=== PATIENT | female | born 1955 | race Caucasian/White ===

== ENCOUNTER 2016-10-23 08:22 | Emergency (ER) | payer OTHER ==
[2016-10-23 08:29] VITALS: RESP 18; TEMP 97.9
--- NOTE | 2016-10-23 08:35 | EDPHY ---
H & P Time Seen by Provider: 10/23/16 08:34 HPI/ROS: CHIEF COMPLAINT: I can't get my breath HISTORY OF PRESENT ILLNESS: This 61-year-old woman presents the emergency department with symptoms which really started in the middle of last night at 3: 00 a.m., 6 hours ago. She describes yesterday waking up feeling like she was toxic or having a hangover. She noted that she felt she was worried about diabetes and she feels she does not have a good diet as her favorite dinner is crackers and cheese. She got home from work last night she was not hungry and she was upset about things at work but was able to get to sleep in her usual fashion. She woke up at 3:00 a.m. feeling short of breath and her mind was racing thinking about a lot of things. She took an extra trazodone but still could not sleep and presents to the emergency department today feeling mildly short of breath. It is not associated with cough or fever or leg swelling. Not positional or exertional. Not associated with chest pain. REVIEW OF SYSTEMS: Eye: no change in vision ENT: no sore throat Cardiac: no chest pain or syncope Pulmonary: HPI Abdomen: no vomiting, diarrhea, abdominal pain Musculoskeletal: Chronic neck and back pain unchanged Skin: no rash Neuro: no headache Constitutional: no fever : no urinary symptoms A comprehensive 10 point review of systems is otherwise negative aside from elements mentioned in the history of present illness. 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 General Appearance: Alert and conversant, cooperative. Eyes: No scleral icterus. ENT, Mouth: Normal mucous membranes. No angioedema. Respiratory: Normal respiratory effort, breath sounds equal, lungs are clear to auscultation. Cardiovascular: Regular rate and rhythm. No murmur. Gastrointestinal: Abdomen is soft and non tender. Neurological: Alert and oriented x3. Normally conversant. Face symmetric, normal movement and sensation in all extremities. Skin: Warm and dry, no rashes. Musculoskeletal: No peripheral edema and no joint swelling. No calf tenderness. Psychiatric: Not agitated. Emergency Department course/MDM: Oxygen saturation noted at 99%. Pretest probability for pulmonary embolism is low, however her mother was on anticoagulation for some type of clotting disorder. Plan for chest x-ray, EKG and troponin, D-dimer. Likely anxiety if those are normal. 2146: Results discussed, feel low likelihood for PE or acute coronary syndrome. Smoking Status: Former smoker Constitutional: Initial Vital Signs Temperature (C) 36.6 C 10/23/16 08:27 Heart Rate 92 10/23/16 08:27 Respiratory Rate 18 10/23/16 08:27 Blood Pressure 136/79 H 10/23/16 08:27 O2 Sat (%) 99 10/23/16 08:27 O2 Delivery Mode Room Air Allergies/Adverse Reactions: lactose Allergy (Verified 10/23/16 08:25) GI sulfamethoxazole [From Bactrim] Allergy (Verified 10/23/16 08:25) "hyponatremia" trimethoprim [From Bactrim] Allergy (Verified 10/23/16 08:25) "hyponatremia" Home Medications: Medication Instructions Recorded Thyroid [[place] Thyroid 60 MG (*)] 30 mg PO 1500 02/21/14 traZODone [traZODONE 50MG (*)] 50 mg PO HS 02/21/14 Gabapentin [Neurontin 300 MG (*)] 300 mg PO HS 05/17/16 Hormone Replacement Therapy 05/17/16 Rosuvastatin Calcium [Crestor 40mg 40 mg PO 05/17/16 (*)] Vicodin 5-300 mg Tablet 10/23/16 Medical Decision Making - Diagnostics EKG Interpretation: 12-lead EKG interpreted by me; official reading is in trace master. My interpretation is sinus rhythm rate 66 no ischemic changes. Imaging Results: Chest x-ray personally interpreted shows stable T6 compression fracture, negative for cause for shortness of breath. Differential Diagnosis: Differential diagnosis considered for shortness of breath including but not limited to pulmonary infectious process, COPD, asthma, pulmonary embolus and congestive heart failure. - Data Points Laboratory Results: Laboratory Results 10/23/16 09:03 10/23/16 09:03 10/23/16 10/23/16 10/23/16 09:03 09:03 09:03 WBC 8.79 10^3/uL 10^3/uL (3.80-9.50) RBC 4.59 10^6/uL 10^6/uL (4.18-5.33) Hgb 14.1 g/dL g/dL (12.6-16.3) Hct 40.4 % % (38.0-47.0) MCV 88.0 fL fL (81.5-99.8) MCH 30.7 pg pg (27.9-34.1) MCHC 34.9 g/dL g/dL (32.4-36.7) RDW 13.3 % % (11.5-15.2) Plt Count 199 10^3/uL 10^3/uL (150-400) MPV 10.4 fL fL (8.7-11.7) Neut % (Auto) 72.3 % % (39.3-74.2) Lymph % (Auto) 17.9 % % (15.0-45.0) [place] % (Auto) 7.6 % % (4.5-13.0) Eos % (Auto) 1.4 % % (0.6-7.6) Baso % (Auto) 0.6 % % (0.3-1.7) Nucleat RBC Rel Count 0.0 % % (0.0-0.2) Absolute Neuts (auto) 6.36 10^3/uL 10^3/uL (1.70-6.50) Absolute Lymphs (auto) 1.57 10^3/uL 10^3/uL (1.00-3.00) Absolute Monos (auto) 0.67 10^3/uL 10^3/uL (0.30-0.80) Absolute Eos (auto) 0.12 10^3/uL 10^3/uL (0.03-0.40) Absolute Basos (auto) 0.05 10^3/uL 10^3/uL (0.02-0.10) Absolute Nucleated RBC 0.00 10^3/uL 10^3/uL (0-0.01) Immature Gran % 0.2 % % (0.0-1.1) Immature Gran # 0.02 10^3/uL 10^3/uL (0.00-0.10) D-Dimer < 0.27 ug/mLFEU ug/mLFEU (0.00-0.50) Sodium 138 mEq/L mEq/L (134-144) Potassium 3.7 mEq/L mEq/L (3.5-5.2) Chloride 104 mEq/L mEq/L (97-110) Carbon Dioxide 23 mEq/l mEq/l (22-31) Anion Gap 11 mEq/L mEq/L (8-16) BUN 9 mg/dL mg/dL (7-23) Creatinine 0.6 mg/dL mg/dL (0.6-1.0) Estimated GFR > 60 Glucose 102 mg/dL H mg/dL (70-100) Calcium 9.9 mg/dL mg/dL (8.5-10.4) Troponin I < 0.012 ng/mL ng/mL (0-0.034) Departure - Departure Disposition: Home, Routine, Self-Care Clinical Impression: Dyspnea Condition: Good Instructions: Dyspnea (ED) Additional Instructions: Normal EKG, troponin, and D-dimer tests. Your chest x-ray shows a stable T6 compression fracture compared to 17 months ago, but no other acute abnormalities. Referrals: Rehana Rubio MD [Primary Care Provider] - As per Instructions
--- NOTE | 2016-10-23 09:07 | CPEKG ---
Heart Rate: 66 RR Interval: 909 P-R Interval: 164 QRSD Interval: 84 QT Interval: 388 QTC Interval: 407 P [place]: 78 QRS [place]: 74 T Wave [place]: 38 EKG Severity - NORMAL ECG - EKG Impression: SINUS RHYTHM Electronically Signed By: Brant Case 23-Oct-2016 09:15:12
[2016-10-23 09:12] LABS: % IMMATURE GRANULYOCYTES 0.2 % (0.0-1.1); ABSOLUTE IMMATURE GRANULOCYTES 0.02 10^3/uL (0.00-0.10); ADD DIFF? NO; ADD MORPH? NO; ADD SCAN? NO; ATYPICAL LYMPHOCYTE FLAG 10 (0-99); FRAGMENT RBC FLAG 0 (0-99); HEMATOCRIT 40.4 % (38.0-47.0); HEMOGLOBIN 14.1 g/dL (12.6-16.3); LEFT SHIFT FLG 0 (0-99); LIPEMIA HEMOLYSIS FLAG 90 (0-99); MEAN CELL HEMOGLOBIN 30.7 pg (27.9-34.1); MEAN CELL HEMOGLOBIN CONCENTR. 34.9 g/dL (32.4-36.7); MEAN PLATELET VOLUME 10.4 fL (8.7-11.7); PLATELET CLUMPS FLAG 10 (0-99); PLATELET COUNT 199 10^3/uL (150-400); RED BLOOD CELL COUNT 4.59 10^6/uL (4.18-5.33); RED CELL DISTRIBUTION WIDTH 13.3 % (11.5-15.2)
[2016-10-23 09:33] LABS: ANION GAP 11 mEq/L (8-16); CALCIUM 9.9 mg/dL (8.5-10.4); CARBON DIOXIDE 23 mEq/l (22-31); CHLORIDE 104 mEq/L (97-110); CREATININE 0.6 mg/dL (0.6-1.0); GLOMERULAR FILTRATION RATE > 60; GLUCOSE 102 mg/dL (70-100); POTASSIUM 3.7 mEq/L (3.5-5.2); SODIUM 138 mEq/L (134-144)
[2016-10-23 09:39] VITALS: BP 120/51; PULSE 70; O2SAT 97
[2016-10-23 09:43] LABS: TROPONIN I < 0.012 ng/mL (0-0.034)
== END 2016-10-23 09:57 | disposition home or self-care (01) ==
DX: R06.00 Dyspnea, unspecified (principal); Z87.891 Personal history of nicotine dependence

== ENCOUNTER 2017-08-26 02:27 | Emergency (ER) | payer OTHER ==
[2017-08-26] MEDS ORDERED: NS 1,000 ML IV ONE ×2 (02:36→04:48)
[2017-08-26] MEDS ORDERED: LORazepam 2 MG/ML INJ IVP ONE (02:36)
--- NOTE | 2017-08-26 02:40 | EDPHY ---
H & P Time Seen by Provider: 08/26/17 02:35 HPI/ROS: HPI CHIEF COMPLAINT: "I can't sleep" HISTORY OF PRESENT ILLNESS: This patient is 62-year-old female she presents emergency room by EMS at 2:30 a.m. In the morning with a constellation of complaints. Patient reports that she has been having very hard time sleeping recently she has been feeling very anxious. She also complains of very dry mouth. She denies any chest pain or shortness of breath. However states that she has been trying to come off her gabapentin recently has not been helping with her chronic pain. She abruptly stopped taking gabapentin this past Saturday. She takes 300 mg three times daily and abruptly stopped taking it she now presents emergency room feeling anxious and inability to sleep. She does state that she suffers from chronic pain typically chronic neck and back pain. She usually takes daily hydrocodone however her primary care doctor has referred her to chronic pain management for this. She states she is enrolled in chronic pain management but is waiting on her urine drug screen to be cleared until she can get a refill of her hydrocodone. Her primary care doctor's prescribed her tramadol which she states is not helping. Her main complaint this evening in emergency room is anxiety feeling anxious and dry mouth. Patient does report that she still has hydrocodone left but not much. Patient distally reports that she has had chills and a very cold this evening. Could not warm up. Of note upon arrival patient's triage vital noted to be temperature 39 degrees. Past Medical History: Chronic pain, chronic neck and back pain, colitis Past Surgical History: No recent surgery Social History: Denies drugs alcohol tobacco lives locally. Family History: Noncontributory ROS REVIEW OF SYSTEMS: A comprehensive 10 point review of systems is otherwise negative aside from elements mentioned in the history of present illness. Exam Constitutional anxious, triage nursing summary reviewed, vital signs reviewed, awake/alert. Temperature noted 39 degrees. Heart rate 102 at triage. Eyes normal conjunctivae and sclera, EOMI, PERRLA. HENT normal inspection, atraumatic, moist mucus membranes, no epistaxis, neck supple/ no meningismus, no raccoon eyes. Respiratory clear to auscultation bilaterally, normal breath sounds, no respiratory distress, no wheezing. Cardiovascular rate normal, regular rhythm, no murmur, no edema, distal pulses normal. Gastrointestinal soft, non-tender, no rebound, no guarding, normal bowel sounds, no distension, no pulsatile mass. Genitourinary no CVA tenderness. Musculoskeletal no midline vertebral tenderness, full range of motion, no calf swelling, no tenderness of extremities, no meningismus, good pulses, neurovascularly intact. Skin pink, warm, & dry, no rash, skin atraumatic. Neurologic awake, alert and oriented x 3, AAOx3, moves all 4 extremities equally, motor intact, sensory intact, CN II-XII intact, normal cerebellar, normal vision, normal speech. Psychiatric anxious Heme/Lymph/Immune no lymphadenopathy. Differential Diagnosis: Includes but is not limited to in a particular order acute anxiety, panic attack, electrolyte disturbance, dehydration, gabapentin withdrawal, opiate withdrawal, infection Medical Decision Making: Plan for this patient IV establishment 1 mg IV Ativan for acute anxiety, check basic blood work, check UA, check electrolytes, gentle IV fluids and re-evaluate. Re-evaluation: EKG interpretation by me on record in [facility] system. Impression time of EKG 3:07 a.m., sinus rhythm rate 93 I do not appreciate acute ischemia. No ST elevation no ST depression no significant T-wave abnormalities. Unremarkable EKG. ED x-ray chest two view: Negative for acute pneumonia. 0505: Re-examination patient resting comfortably no acute distress. Feels better after IV Ativan and Tylenol. Fever down to 37.7. Blood work has been reviewed she does not have a high leukocytosis. Influenza is negative. Chest x-ray does not show pneumonia. No systemic white count. Lactic acid less than 2. Urinalysis clean. Most likely had anxiety/panic attack, I have not found any signs of infection on exam or workup. She is feeling better after IV Ativan and fluids. Additionally is most likely going through withdrawal off gabapentin she abruptly stopped this 2 days ago. I do recommend she continues to take her gabapentin slowly tapers off under the care of her primary care doctor. Additionally patient is requesting hydrocodone medication refill. I explained that she should have her medication refilled with her chronic pain doctor or her primary care doctor will give her very limited supply of hydrocodone. Additionally she appears well nontoxic no acute distress at this time feels much better after IV Ativan. Unclear exactly where her temperature was coming from. She does not have any meningeal signs. Her urinalysis clean. Chest x- ray shows no pneumonia. She has a normal lactic. No systemic white count. She otherwise appears well nontoxic. Return precautions discussed with her. She understands return if she has worsening symptoms high fever, vomiting or not feeling well. Follow up with her primary care doctor as well. Source: Patient, EMS - Medical/Surgical History Hx Asthma: No Hx Chronic Respiratory Disease: No Hx Diabetes: No Hx Cardiac Disease: No Hx Renal Disease: No Hx Cirrhosis: No Hx Alcoholism: Yes Hx HIV/AIDS: No Hx Splenectomy or Spleen Trauma: No Other PMH: alcoholism (sober [id number]); colitis; thyroid; R shoulder sx Jul 2013 ; T&A kchronic neck pain - Social History Smoking Status: Former smoker Constitutional: Initial Vital Signs Temperature (C) 39.0 C H 08/26/17 02:30 Heart Rate 102 H 08/26/17 02:30 Respiratory Rate 20 08/26/17 02:30 Blood Pressure 140/69 H 08/26/17 02:30 O2 Sat (%) 98 08/26/17 02:30 O2 Delivery Mode Room Air Allergies/Adverse Reactions: lactose Allergy (Verified 08/26/17 02:44) GI sulfamethoxazole [From Bactrim] Allergy (Verified 08/26/17 02:44) "hyponatremia" trimethoprim [From Bactrim] Allergy (Verified 08/26/17 02:44) "hyponatremia" Home Medications: Medication Instructions Recorded Thyroid [[place] Thyroid 60 MG (*)] 30 mg PO 1500 02/21/14 traZODone [traZODONE 50MG (*)] 50 mg PO HS 02/21/14 Gabapentin [Neurontin 300 MG (*)] 300 mg PO HS 05/17/16 Hormone Replacement Therapy 05/17/16 Rosuvastatin Calcium [Crestor 40mg 40 mg PO 05/17/16 (*)] Vicodin 5-300 mg Tablet 10/23/16 Chloe-D 12 Hour Tablet 08/26/17 Flonase Allergy Relief 08/26/17 Gabapentin [Neurontin 100 MG (*)] 100 mg PO TID #90 cap 08/26/17 Hydrocodone/APAP 5/325 [[place] 1 - 2 tab PO Q4H PRN #10 tab 08/26/17 5/325] Melatonin 08/26/17 Singulair 08/26/17 traMADol 08/26/17 Medical Decision Making - Data Points Laboratory Results: Laboratory Results 08/26/17 02:30 08/26/17 02:30 Medications Given: Discontinued Medications Acetaminophen (Tylenol) 1,000 mg PO EDNOW ONE Stop: 08/26/17 03:36 Last Admin: 08/26/17 03:43 Dose: 1,000 mg Hydrocodone Bitart/Acetaminophen ([place] 5/325mg [place]#6) 1 btl TAKEHOME EDNOW ONE Stop: 08/26/17 05:58 Last Admin: 08/26/17 06:04 Dose: 1 btl Sodium Chloride (Ns) 1,000 mls @ 0 mls/hr IV EDNOW ONE; Wide Open PRN Reason: Protocol Stop: 08/26/17 02:37 Last Admin: 08/26/17 02:53 Dose: 1,000 mls Sodium Chloride (Ns) 1,000 mls @ 0 mls/hr IV ONCE ONE PRN Reason: Wide Open Stop: 08/26/17 04:49 Last Admin: 08/26/17 04:49 Dose: 1,000 mls Lorazepam (Ativan Injection) 1 mg IVP EDNOW ONE Stop: 08/26/17 02:37 Last Admin: 08/26/17 02:53 Dose: 1 mg Departure - Departure Disposition: Home, Routine, Self-Care Clinical Impression: Anxiety Gabapentin adverse reaction Qualifiers: Encounter type: initial encounter Qualified Code(s): T42.6X5A - Adverse effect of other antiepileptic and sedative-hypnotic drugs, initial encounter Fever Qualifiers: Fever type: unspecified Qualified Code(s): R50.9 - Fever, unspecified Condition: Good Instructions: Hydrocodone/Acetaminophen (By mouth), Fever in Adults (ED), Anxiety (ED) Additional Instructions: 1. Stay well-hydrated drink lots of fluids. 2. I would slowly taper off her gabapentin if this is what you wish to do. I would do this in conjunction with her primary care doctor. 3. Take Tylenol Motrin for pain and fever control. 4. Return to the emergency room if your feeling worse. This includes high fever , vomiting or not feeling well. Referrals: Patient,NotPresent [Unknown] - As per Instructions Prescriptions: Gabapentin [Neurontin 100 MG (*)] 100 mg PO TID #90 cap Hydrocodone/APAP 5/325 [[place] 5/325] 1 - 2 tab PO Q4H PRN #10 tab PRN Reason: Pain, Moderate
[2017-08-26 02:42] LABS: PLATELET COUNT 160 10^3/uL (150-400)
[2017-08-26 02:51] LABS: INR 0.96 (0.83-1.16)
[2017-08-26 02:58] LABS: CREATINE KINASE 99 IU/L (0-156)
--- NOTE | 2017-08-26 03:09 | CPEKG ---
Heart Rate: 93 RR Interval: 645 P-R Interval: 156 QRSD Interval: 102 QT Interval: 348 QTC Interval: 433 P [place]: -16 QRS [place]: -1 T Wave [place]: 42 EKG Severity - NORMAL ECG - EKG Impression: SINUS RHYTHM Electronically Signed By: Raymond Cifuentes 26-Aug-2017 06:47:17
[2017-08-26] MEDS ORDERED: ACETAMINOPHEN 500 MG TAB PO ONE (03:35)
[2017-08-26] MEDS ORDERED: HYDROCOD/APAP 5/325 PREPACK#6 BTL TAKEHOME ONE (05:57)
[2017-08-26 06:12] VITALS: BP 104/69; PULSE 83; RESP 16; TEMP 99.3; O2SAT 96
== END 2017-08-26 06:12 | disposition home or self-care (01) ==
LOC: EDUNIT#
DX: F41.9 Anxiety disorder, unspecified (principal); R50.9 Fever, unspecified; T42.6X5A Adverse effect of other antiepileptic and sedative-hypnotic drugs, initial encounter; E86.9 Volume depletion, unspecified; Z87.891 Personal history of nicotine dependence
CPT/HCPCS: 96374; J2060

== ENCOUNTER 2017-08-29 06:45 | Emergency (ER) | payer OTHER ==
[2017-08-29] MEDS ORDERED: NS 1,000 ML IV ONE (07:37)
[2017-08-29] MEDS ORDERED: LORazepam 2 MG/ML INJ IVP ONE (07:38)
--- NOTE | 2017-08-29 08:18 | EDPHY ---
H & P Time Seen by Provider: 08/29/17 06:56 HPI/ROS: Chief complaint. Anxiety HPI. 62-year-old female presents emergency department with"incredible anxiety" . She can't sleep. Fast heart rate. She was seen August 26 for anxiety and insomnia. The patient had quit gabapentin 2 days prior to that visit because she was concerned about side effects. She has chronic pain. She was prescribed gabapentin tabs 90 and did restart these. She was also prescribed hydrocodone 10 tablets as the patient has chronic pain and was apparently awaiting admission to pain clinic pending drug screen. The patient has subsequently restarted her gabapentin. Also 1 week ago she changed from hydrocodone to tramadol pending the pain management program. She had been taking gabapentin 300 mg three times daily but I believe restarted it at 150 mg three times daily she has had dry mouth especially at night for 1 month. She stopped the gabapentin also secondary to the dry mouth. She tells me she is at the end of her rope and not sane and somewhat suicidal because of her circumstances ROS Constitutional. no fever/chills, no weakness Eyes. no problems with vision ENT. no sore throat, no nasal drainage; dry mouth Cardiovascular. no chest pain Respiratory. no shortness of breath, no cough Abdominal. no abdominal pain, no nausea/vomiting, no diarrhea . no problems urinating MS. no calf pain/swelling, no neck/back pain, no joint pain Skin. no rash Lymph. no swollen glands Neuro. Anxiety, insomnia, suicide ideation Past Medical/Surgical History: Chronic pain, remote history of alcoholism, colitis, hypothyroid Social History: Single, nonsmoker, no recent alcohol Smoking Status: Former smoker Physical Exam: General Appearance: Alert tearful well-developed female mild distress vital signs are stable Eyes: Pupils equal and round no pallor or injection. ENT, Mouth: Mucous membranes are moist. Respiratory: There are no retractions, lungs are clear to auscultation. Cardiovascular: Regular rate and rhythm. Gastrointestinal: Abdomen is soft and nontender, no masses, bowel sounds normal. Neurological: Awake and alert, sensory and motor exams grossly normal. Skin: Warm and dry, no rashes. Musculoskeletal: Neck is supple nontender. Extremities symmetrical, full range of motion. Psychiatric: Patient is oriented X 3, crying and tearful. Admits to thinking of harming herself. Constitutional: Initial Vital Signs Temperature (C) 36.8 C 08/29/17 06:46 Heart Rate 96 08/29/17 06:46 Respiratory Rate 22 H 08/29/17 06:46 Blood Pressure 178/87 H 08/29/17 06:46 O2 Sat (%) 97 08/29/17 06:46 O2 Delivery Mode Room Air Allergies/Adverse Reactions: lactose Allergy (Verified 08/29/17 06:45) GI sulfamethoxazole [From Bactrim] Allergy (Verified 08/29/17 06:45) "hyponatremia" trimethoprim [From Bactrim] Allergy (Verified 08/29/17 06:45) "hyponatremia" Home Medications: Medication Instructions Recorded Thyroid [[place] Thyroid 60 MG (*)] 30 mg PO 1500 02/21/14 traZODone [traZODONE 50MG (*)] 50 mg PO HS 02/21/14 Gabapentin [Neurontin 300 MG (*)] 300 mg PO HS 05/17/16 Hormone Replacement Therapy 05/17/16 Rosuvastatin Calcium [Crestor 40mg 40 mg PO 05/17/16 (*)] Vicodin 5-300 mg Tablet 10/23/16 Chloe-D 12 Hour Tablet 08/26/17 Flonase Allergy Relief 08/26/17 Gabapentin [Neurontin 100 MG (*)] 100 mg PO TID #90 cap 08/26/17 Hydrocodone/APAP 5/325 [[place] 1 - 2 tab PO Q4H PRN #10 tab 08/26/17 5/325] Melatonin 08/26/17 Singulair 08/26/17 traMADol 08/26/17 LORazepam [Ativan] 1 mg PO Q6-8PRN PRN #4 tab 08/29/17 Medical Decision Making Procedures: IV normal saline, Ativan IV ED Course/Re-evaluation: Re-evaluation at 9:30 a.m. Patient is stable and resting comfortably. She agrees she would like to speak to mental health. Re-evaluation at 1:30 p.m.. The patient, mental health worker and I discussed treatment plan and medication. We discussed criteria for return and importance of follow-up and further evaluation and keeping her appointment with pain management clinic tomorrow morning. She expresses understanding and agreement Differential Diagnosis: Stress and anxiety with recent change in medication. Long time chronic pain in change of her chronic pain medications. Appointment tomorrow with new pain management physician. She expressed suicide ideation but after mental health evaluation we feel that she is most appropriate for outpatient management - Data Points Laboratory Results: Laboratory Results 08/29/17 08:00 08/29/17 08:00 08/29/17 08/29/17 08/29/17 08:05 08:00 08:00 WBC 10.38 10^3/uL H 10^3/uL (3.80-9.50) RBC 4.58 10^6/uL 10^6/uL (4.18-5.33) Hgb 14.3 g/dL g/dL (12.6-16.3) Hct 40.2 % % (38.0-47.0) MCV 87.8 fL fL (81.5-99.8) MCH 31.2 pg pg (27.9-34.1) MCHC 35.6 g/dL g/dL (32.4-36.7) RDW 12.8 % % (11.5-15.2) Plt Count 229 10^3/uL 10^3/uL (150-400) MPV 10.6 fL fL (8.7-11.7) Neut % (Auto) 72.7 % % (39.3-74.2) Lymph % (Auto) 16.8 % % (15.0-45.0) [place] % (Auto) 8.6 % % (4.5-13.0) Eos % (Auto) 1.3 % % (0.6-7.6) Baso % (Auto) 0.3 % % (0.3-1.7) Nucleat RBC Rel Count 0.0 % % (0.0-0.2) Absolute Neuts (auto) 7.55 10^3/uL H 10^3/uL (1.70-6.50) Absolute Lymphs (auto) 1.74 10^3/uL 10^3/uL (1.00-3.00) Absolute Monos (auto) 0.89 10^3/uL H 10^3/uL (0.30-0.80) Absolute Eos (auto) 0.14 10^3/uL 10^3/uL (0.03-0.40) Absolute Basos (auto) 0.03 10^3/uL 10^3/uL (0.02-0.10) Absolute Nucleated RBC 0.00 10^3/uL 10^3/uL (0-0.01) Immature Gran % 0.3 % % (0.0-1.1) Immature Gran # 0.03 10^3/uL 10^3/uL (0.00-0.10) Sodium 142 mEq/L mEq/L (135-145) Potassium 4.0 mEq/L mEq/L (3.5-5.2) Chloride 104 mEq/L mEq/L (97-110) Carbon Dioxide 23 mEq/l mEq/l (22-31) Anion Gap 15 mEq/L mEq/L (8-16) BUN 4 mg/dL L mg/dL (7-23) Creatinine 0.5 mg/dL L mg/dL (0.6-1.0) Estimated GFR > 60 Glucose 98 mg/dL mg/dL (70-100) Calcium 10.0 mg/dL mg/dL (8.5-10.4) Urine Opiates Screen NON-NEGATIVE H (NEGATIVE) Urine Barbiturates NEGATIVE (NEGATIVE) Ur Phencyclidine Scrn NEGATIVE (NEGATIVE) Ur Amphetamine Screen NEGATIVE (NEGATIVE) U Benzodiazepines Scrn NEGATIVE (NEGATIVE) Urine Cocaine Screen NEGATIVE (NEGATIVE) U Marijuana (THC) Screen NEGATIVE (NEGATIVE) Ethyl Alcohol < 10 mg/dL mg/dL (0-10) Medications Given: Discontinued Medications Sodium Chloride (Ns) 1,000 mls @ 0 mls/hr IV EDNOW ONE; Wide Open PRN Reason: Protocol Stop: 08/29/17 07:38 Last Admin: 08/29/17 08:26 Dose: 1,000 mls Lorazepam (Ativan Injection) 1 mg IVP EDNOW ONE Stop: 08/29/17 07:39 Last Admin: 08/29/17 08:27 Dose: 1 mg Departure - Departure Disposition: Home, Routine, Self-Care Clinical Impression: Anxiety Condition: Good Instructions: Anxiety (ED) Additional Instructions: Continue your gabapentin his previously prescribed. Ativan 1/2 to 1 pill every 6 hr as needed for anxiety. Return for worsening symptoms. Keep your appointment with pain management tomorrow. Referrals: Rehana Rubio MD [Primary Care Provider] - 5-7 days, call for appt. Prescriptions: LORazepam [Ativan] 1 mg PO Q6-8PRN PRN #4 tab PRN Reason: Anxiety
[2017-08-29 08:22] LABS: PLATELET COUNT 229 10^3/uL (150-400)
[2017-08-29 13:24] VITALS: RESP 16
[2017-08-29 14:07] VITALS: BP 168/74; PULSE 84; TEMP 98.4; O2SAT 96
== END 2017-08-29 14:06 | disposition home or self-care (01) ==
DX: F41.9 Anxiety disorder, unspecified (principal); E86.9 Volume depletion, unspecified; Z87.891 Personal history of nicotine dependence
CPT/HCPCS: 80305; 96374; G0480; J2060

== ENCOUNTER → 2018-02-27 | Outpatient (CLI) | payer OTHER | LOC: FIMAGING 10:28 | PROVIDERS: ATTEND Family Medicine | DX: Z13.820 Encounter for screening for osteoporosis (principal); M85.89 Other specified disorders of bone density and structure, multiple sites; Z78.0 Asymptomatic menopausal state; Z79.890 Hormone replacement therapy ==

== ENCOUNTER → 2018-05-13 | Outpatient (CLI) | payer OTHER | LOC: FCPNEURO 23:39 | PROVIDERS: ATTEND Student in an Organized Health Care Education/Training Program | DX: G47.33 Obstructive sleep apnea (adult) (pediatric) (principal) ==